=== PATIENT | male | born 2000 | race Caucasian/White ===

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

== ENCOUNTER 2021-04-27 05:25 | Emergency (ER) | payer OTHER ==
[2021-04-27 05:48] VITALS: BP 138/76; PULSE 61; RESP 19; TEMP 97.7
--- NOTE | 2021-04-27 06:24 | ED ---
ENT HPI - General Chief complaint: ENT Stated complaint: Ear Pain Time Seen by Provider: 04/27/21 05:59 Source: patient, RN notes reviewed Mode of arrival: ambulatory Limitations: no limitations - History of Present Illness Initial comments: 20-year-old male presents emergency department with chief complaint of right ear pain. Patient states that started overnight. Patient complains of mild nasal congestion which has been present for 3 days. No fevers or chills. No cough or chest pain or shortness of breath. Patient states she home tested negative for COVID-19. Patient states she's had some ear infections in the past which feel very similar. - Related Data Previous Rx's Medication Instructions Recorded Lidocaine Viscous 2% [Xylocaine 5 ml MUCOUS MEM Q3H PRN #50 ml 11/17/18 Viscous] valACYclovir HCL [Valtrex] 2,000 mg PO Q12HR 2 Days tab 11/17/18 Ibuprofen [Motrin] 600 mg PO Q8HR PRN #20 tab 11/18/18 valACYclovir HCL [Valtrex] 1,000 mg PO BID 7 Days #14 tab 11/18/18 Amoxicillin/Potassium Clav 1 tab PO Q12HR #20 tab 04/28/19 [Augmentin 875-125 Tablet] predniSONE [Deltasone] 40 mg PO DAILY #15 tab 04/28/19 Clindamycin HCl 300 mg PO Q6HR #40 cap 07/27/19 Amoxicillin/Potassium Clav 1 tab PO Q12HR #20 tab 04/27/21 [Augmentin 875-125 Tablet] Allergies Allergy/AdvReac Type Severity Reaction Status Date / Time No Known Allergies Allergy Verified 04/27/21 05:48 Review of Systems ROS Statement: Those systems with pertinent positive or pertinent negative responses have been documented in the HPI. ROS Other: All systems not noted in ROS Statement are negative. Past Medical History Past Medical History: No Reported History History of Any Multi-Drug Resistant Organisms: None Reported Past Surgical History: Adenoidectomy Past Psychological History: No Psychological Hx Reported Smoking Status: Former smoker Past Alcohol Use History: Occasional Past Drug Use History: Marijuana General Exam Limitations: no limitations General appearance: alert, in no apparent distress Head exam: Present: atraumatic, normocephalic, normal inspection Eye exam: Present: normal appearance, PERRL, EOMI. Absent: scleral icterus, conjunctival injection, periorbital swelling ENT exam: Present: normal oropharynx, mucous membranes moist. Absent: normal exam, TM's normal bilaterally (Right TM erythematous, bulging noted) Neck exam: Present: normal inspection, full ROM. Absent: tenderness, meningismus, lymphadenopathy Respiratory exam: Present: normal lung sounds bilaterally. Absent: respiratory distress, wheezes, rales, rhonchi, stridor Cardiovascular Exam: Present: regular rate, normal rhythm, normal heart sounds. Absent: systolic murmur, diastolic murmur, rubs, gallop, clicks Course Vital Signs 04/27/21 05:44 Temperature 97.7 F Pulse Rate 61 Respiratory 19 Rate Blood Pressure 138/76 O2 Sat by Pulse 98 Oximetry Medical Decision Making - Medical Decision Making Patient has a right otitis media will be discharged on Augmentin return parameters were discussed. Disposition Clinical Impression: Otitis media, right Disposition: HOME SELF-CARE Condition: Stable Instructions (If sedation given, give patient instructions): Earache (ED) Additional Instructions: Please return to the Emergency Department if symptoms worsen or any other concerns. Prescriptions: Amoxicillin/Potassium Clav [Augmentin 875-125 Tablet] 1 tab PO Q12HR #20 tab Is patient prescribed a controlled substance at d/c from ED?: No Referrals: None,Stated [Primary Care Provider] - 1-2 days Time of Disposition: 06:23
[2021-04-27] MEDS ORDERED: AMOXIC-POT CLAV 875MG STARTER PACK 2 TAB BTL PO STA (06:32)
== END 2021-04-27 06:49 | disposition home or self-care (01) ==
LOC: EC 05:25
DX: H66.91 Otitis media, unspecified, right ear (principal); F12.90 Cannabis use, unspecified, uncomplicated; Z87.891 Personal history of nicotine dependence; Z79.1 Long term (current) use of non-steroidal anti-inflammatories (NSAID); Z79.52 Long term (current) use of systemic steroids; Z79.899 Other long term (current) drug therapy
CPT/HCPCS: 99283